=== PATIENT | female | born 1995 | race African-American/Black ===

== ENCOUNTER 2016-04-28 12:26 | Emergency (ER) | payer MEDICAID ==
[~2016-04-28] VITALS: Ht 172.7 cm; Wt 72.1 kg
[~2016-04-28 12:26] MED LIST: PREN-96 PO; PRENTAB28 PO
[2016-04-28 12:54] VITALS: BP 89/62
[2016-04-28] MEDS ORDERED: diphenhdrAMINE HCL 50 MG/1 ML VL IM ONE (14:15)
== END 2016-04-28 14:22 | disposition home or self-care (01) ==
LOC: ER 12:40
DX: B86 Scabies (principal); Z79.899 Other long term (current) drug therapy
CPT/HCPCS: 96372; 99283; J1200

== ENCOUNTER 2016-07-29 03:50 | Observation (INO) | payer MEDICAID ==
[2016-07-29 05:19] LABS: Urine Bilirubin Negative (Negative); Urine Blood Negative /uL (Negative); Urine Color Yellow (Yellow); Urine Glucose Normal (Normal); Urine Ketone Negative (Negative); Urine Nitrite Negative (Negative); Urine RBC 1 /hpf (0 - 4); Urine Squamous Epithelial Cell FEW /hpf (<5); Urine Urobilinogen Normal (Negative)
== END 2016-07-29 05:59 | disposition home or self-care (01) | DRG 566 ==
LOC: LDRP 03:50
PROVIDERS: ADMIT Obstetrics & Gynecology; ATTEND Obstetrics & Gynecology
DX: O62.9 Abnormality of forces of labor, unspecified (principal); O36.8120 Decreased fetal movements, second trimester, not applicable or unspecified; Z3A.22 22 weeks gestation of pregnancy
CPT/HCPCS: 59025; 76805; 80307; 81001; G0378